=== PATIENT | male | born 1995 | race Caucasian/White ===

== ENCOUNTER 2021-06-02 17:53 | Emergency (ER) | payer SELFPAY ==
[~2021-06-02] VITALS: Ht 167.6 cm; Wt 70.8 kg
--- NOTE | 2021-06-02 18:58 | REP ---
INDICATION: dislocation/swelling. COMPARISON: None. TECHNIQUE: Two limited views FINDINGS: There is lateral dislocation of the 1st metacarpal phalangeal joint. There is no evidence of a concomitant acute fracture. IMPRESSION: First metacarpal phalangeal joint dislocation as described above. <Electronically signed by Rohan Williamson > 06/02/21 [id number]
[2021-06-02] MEDS ORDERED: LIDOCAINE 1% MDV 20ML VIAL SC ONE (22:30)
[2021-06-02] MEDS ORDERED: LIDOCAINE W/EPINEPHRINE 1% 20ML VIAL As Ordered ONE (22:31)
--- NOTE | 2021-06-03 00:09 | REPVR ---
PROCEDURE INFORMATION: Exam: XR Right Finger(s) Exam date and time: 06/02/2021 10:53 PM Age: 25 years old Clinical indication: Other: Post reduction; Additional info: Eval reduction of thumb TECHNIQUE: Imaging protocol: XR Right Thumb. Views: Minimum 2 views. COMPARISON: [facility], Lat 06/02/2021 6:22 PM FINDINGS: There has been anatomic reduction of previously seen 1st metacarpophalangeal dislocation. No acute displaced fracture is seen. Remainder of the thumb is unremarkable. IMPRESSION: Anatomic reduction. Findings discussed above. Electronically signed by: Darrius Dorsey On 06/03/2021 00:09:23 AM
[2021-06-03 00:28] VITALS: BP 142/80
== END 2021-06-03 00:33 | disposition home or self-care (01) ==
LOC: M ED 17:53
DX: S63.114A Dislocation of metacarpophalangeal joint of right thumb, initial encounter (principal); W11.XXXA Fall on and from ladder, initial encounter; Y92.9 Unspecified place or not applicable; Y93.9 Activity, unspecified; Y99.9 Unspecified external cause status

== ENCOUNTER → 2023-02-14 | Outpatient (CLI) | payer SELFPAY | LOC: M WUC 13:20 | PROVIDERS: ATTEND Physician Assistant | DX: S80.01XA Contusion of right knee, initial encounter (principal); X58.XXXA Exposure to other specified factors, initial encounter; Y92.9 Unspecified place or not applicable ==